=== PATIENT | female | born 1995 | race African-American/Black ===

== ENCOUNTER 2018-03-25 16:52 | Emergency (ER) | payer SELFPAY ==
[~2018-03-25] VITALS: Ht 162.6 cm; Wt 62.0 kg
[2018-03-25] MEDS ORDERED: IBUPROFEN 600MG TABLET PO ONE (19:15)
[2018-03-25 21:27] VITALS: BP 109/66
== END 2018-03-25 21:27 | disposition home or self-care (01) ==
LOC: ER 17:47
DX: S02.2XXA Fracture of nasal bones, initial encounter for closed fracture (principal); S00.81XA Abrasion of other part of head, initial encounter; S00.212A Abrasion of left eyelid and periocular area, initial encounter; F12.10 Cannabis abuse, uncomplicated; Y04.0XXA Assault by unarmed brawl or fight, initial encounter; Y93.89 Activity, other specified; Y92.89 Other specified places as the place of occurrence of the external cause
CPT/HCPCS: 70450; 70486; 81025; 99284

== ENCOUNTER 2018-03-27 17:06 | Emergency (ER) | payer MEDICAID ==
[~2018-03-27] VITALS: Ht 154.9 cm; Wt 63.0 kg
[2018-03-27 17:28] VITALS: BP 110/92
== END 2018-03-27 18:45 | disposition left against medical advice (07) ==
LOC: ER 17:06
DX: R51 Headache (principal); Z87.81 Personal history of (healed) traumatic fracture
CPT/HCPCS: 99281

== ENCOUNTER 2025-07-01 01:30 | Emergency (ER) | payer MEDICAID, OTHER ==
[~2025-07-01] VITALS: Ht 154.9 cm; Wt 91.0 kg
[2025-07-01 01:49] VITALS: O2SAT 97
[2025-07-01] MEDS ORDERED: IBUP-2029 MT (04:12)
[2025-07-01] MEDS ORDERED: SULF1TAB48 MT (04:12)
[2025-07-01 04:21] VITALS: BP 124/83; PULSE 98; RESP 20; TEMP 37.1; O2SAT 100
== END 2025-07-01 04:22 | disposition home or self-care (01) ==
LOC: ER 01:30
DX: L05.91 Pilonidal cyst without abscess (principal); Z79.899 Other long term (current) drug therapy; Z98.890 Other specified postprocedural states; F12.90 Cannabis use, unspecified, uncomplicated
CPT/HCPCS: 10080; 99283